=== PATIENT | female | born 1955 | race Caucasian/White ===

== ENCOUNTER 2020-12-06 17:47 | Emergency (ER) | payer MEDICARE, OTHER ==
[~2020-12-06 17:47] MED LIST: PREDNISONE 50 M50 MG PO
[2020-12-06 19:06] LABS: HEMOGLOBIN 8.4 gm/dl (12.3-15.3); RED BLOOD COUNT 3.29 M/UL (4.00-5.10); WHITE BLOOD COUNT 7.3 K/UL (4.5-11.0)
[2020-12-06 19:20] LABS: BUN/CREATININE RATIO 17 (0-10)
== END 2020-12-06 23:55 | disposition short-term general hospital (02) ==
LOC: ER1 17:47
PROVIDERS: Physician Assistant Medical
DX: K92.2 Gastrointestinal hemorrhage, unspecified (principal); I50.9 Heart failure, unspecified; F17.210 Nicotine dependence, cigarettes, uncomplicated; Z79.82 Long term (current) use of aspirin; Z79.01 Long term (current) use of anticoagulants
CPT/HCPCS: 71045; 80053; 81001; 82270; 82550; 82553; 83605; 83874; 84484; 85025; 85610; 86850; 86900; 86901; 87635; 93005; 96374; 99285; C9113; Q9967

== ENCOUNTER 2021-01-01 17:16 | Inpatient (IN) | payer MEDICARE, OTHER ==
[~2021-01-01] VITALS: Ht 170.2 cm; Wt 86.5 kg
[2021-01-01 19:30] LABS: WHITE BLOOD COUNT 6.7 K/UL (4.5-11.0)
[2021-01-01 19:56] LABS: BUN/CREATININE RATIO 15 (0-10)
[2021-01-01 20:05] LABS: HEMOGLOBIN 5.6 gm/dl (12.3-15.3)
[2021-01-01 20:06] LABS: RED BLOOD COUNT 2.48 M/UL (4.00-5.10)
[2021-01-01] MEDS ORDERED: CELEXA 20MG TAB20 MG PO (21:18)
[2021-01-01] MEDS ORDERED: ATORVASTATIN CA40 MG PO (21:18)
[2021-01-01] MEDS ORDERED: LOPRESSOR 25 MG25 MG PO (21:19)
[2021-01-01] MEDS ORDERED: KLONOPIN TAB 00.5 MG PO (21:19)
[2021-01-01] MEDS ORDERED: MONTELUKAST SOD10 MG PO (21:19)
[2021-01-01] MEDS ORDERED: FUROSEMIDE20 MG PO (21:19)
[2021-01-01] MEDS ORDERED: GABAPENTIN600 MG PO (21:20)
[2021-01-01] MEDS ORDERED: FLONASE 0.05% N16 GM (21:20)
[2021-01-01] MEDS ORDERED: HYDROCODON-ACE1 EAC4 PO (21:21)
[2021-01-01] MEDS ORDERED: OMEPRAZOLE20 MG PO (21:21)
[2021-01-01] MEDS ORDERED: ELIQUIS5 MG PO (21:22)
[2021-01-01] MEDS ORDERED: PLETAL 100 MG100 MG PO (21:22)
[2021-01-01] MEDS ORDERED: TRELEGY ELLIPT1 EACH INH (21:24)
[2021-01-01] MEDS ORDERED: ASPIRIN EC81 MG PO (21:25)
[2021-01-01] MEDS ORDERED: CETIRIZINE HCL10 MG PO (21:25)
[2021-01-01] MEDS ORDERED: MULTIVITAMINS1 EAC2 PO (21:26)
[2021-01-01] MEDS ORDERED: FERROUS SULFAT325 MG PO (21:26)
[2021-01-01] MEDS ORDERED: ALBUTEROL2.5 MG/3 M INH (21:27)
[2021-01-01] MEDS ORDERED: DALIRESP 500500 MCG PO (21:28)
[2021-01-01] MEDS ORDERED: POTASSIUM CHLO20 ME2 PO (21:29)
[2021-01-02 08:01] LABS: RED BLOOD COUNT 2.59 M/UL (4.00-5.10); WHITE BLOOD COUNT 5.6 K/UL (4.5-11.0)
[2021-01-02 08:04] LABS: HEMOGLOBIN 6.3 gm/dl (12.3-15.3)
[2021-01-02 08:28] LABS: BUN/CREATININE RATIO 15 (0-10)
[2021-01-02 15:45] LABS: HEMOGLOBIN 7.9 gm/dl (12.3-15.3)
[2021-01-02 20:09] LABS: HEMOGLOBIN 7.8 gm/dl (12.3-15.3)
[2021-01-04 02:57] LABS: HEMOGLOBIN 8.1 gm/dl (12.3-15.3); WHITE BLOOD COUNT 4.9 K/UL (4.5-11.0)
[2021-01-04 02:59] LABS: RED BLOOD COUNT 3.29 M/UL (4.00-5.10)
[2021-01-04 03:26] LABS: BUN/CREATININE RATIO 12 (0-10)
[2021-01-05] MEDS ORDERED: PROTONIX40 MG PO (11:36)
== END 2021-01-05 13:24 | disposition home or self-care (01) | DRG 378 ==
LOC: ER1 17:16 → PROG CARE 20:43 → CDU 20:43 → PROG CARE 23:00 → MED SURG 4 01-05 05:13
PROVIDERS: Internal Medicine; Physician Assistant; ADMIT Internal Medicine
PROC: 30233N1 Transfusion of Nonautologous Red Blood Cells into Peripheral Vein, Percutaneous Approach (ICD-10-PCS; principal; 2021-01-01)
PROC: B24BZZ4 Ultrasonography of Heart with Aorta, Transesophageal (ICD-10-PCS; 2021-01-02)
PROC: 0DB78ZX Excision of Stomach, Pylorus, Via Natural or Artificial Opening Endoscopic, Diagnostic (ICD-10-PCS; 2021-01-04)
PROC: 0DBH8ZX Excision of Cecum, Via Natural or Artificial Opening Endoscopic, Diagnostic (ICD-10-PCS; 2021-01-04)
PROC: 0DBL8ZZ Excision of Transverse Colon, Via Natural or Artificial Opening Endoscopic (ICD-10-PCS; 2021-01-04)
DX: K57.31 Diverticulosis of large intestine without perforation or abscess with bleeding (principal); D62 Acute posthemorrhagic anemia; I50.32 Chronic diastolic (congestive) heart failure; J96.11 Chronic respiratory failure with hypoxia; E66.2 Morbid (severe) obesity with alveolar hypoventilation; I48.91 Unspecified atrial fibrillation; Z20.822 Contact with and (suspected) exposure to COVID-19; F17.210 Nicotine dependence, cigarettes, uncomplicated; J43.9 Emphysema, unspecified; E87.6 Hypokalemia; K59.00 Constipation, unspecified; K29.70 Gastritis, unspecified, without bleeding; I25.10 Atherosclerotic heart disease of native coronary artery without angina pectoris; E78.5 Hyperlipidemia, unspecified; E86.1 Hypovolemia; E11.40 Type 2 diabetes mellitus with diabetic neuropathy, unspecified; I95.9 Hypotension, unspecified; I48.0 Paroxysmal atrial fibrillation; K63.5 Polyp of colon; E11.51 Type 2 diabetes mellitus with diabetic peripheral angiopathy without gangrene; Z79.4 Long term (current) use of insulin; Z79.01 Long term (current) use of anticoagulants; Z90.710 Acquired absence of both cervix and uterus; K64.0 First degree hemorrhoids
CPT/HCPCS: ECHO; 36415; 36430; 70450; 71045; 80048; 80053; 80307; 81001; 82140; 82272; 82550; 82553; 82607; 82746; 82962; 83036; 83874; 83880; 84439; 84443; 84484; 84550; 85014; 85018; 85025; 85610; 86850; 86900; 86901; 86920; 87086; 93005; 93306; 94760; 96374; 99285; C9113; J1940; J2250; J2405; J3010; J7040; J7050; P9016; U0002

== ENCOUNTER → 2021-04-26 | Outpatient (CLI) | payer MEDICARE, OTHER ==
[~2021-04-26] MED LIST changes: +ALBUTEROL2.5 MG/3 M INH; +ASPIRIN EC81 MG PO; +ATORVASTATIN CA40 MG PO; +CELEXA 20MG TAB20 MG PO; +CETIRIZINE HCL10 MG PO; +DALIRESP 500500 MCG PO; +ELIQUIS5 MG PO; +FERROUS SULFAT325 MG PO; +FLONASE 0.05% N16 GM; +FUROSEMIDE20 MG PO; +GABAPENTIN600 MG PO; +HYDROCODON-ACE1 EAC4 PO; +KLONOPIN TAB 00.5 MG PO; +LOPRESSOR 25 MG25 MG PO; +MONTELUKAST SOD10 MG PO; +MULTIVITAMINS1 EAC2 PO; +OMEPRAZOLE20 MG PO; +PLETAL 100 MG100 MG PO; +POTASSIUM CHLO20 ME2 PO; +PROTONIX40 MG PO; +TRELEGY ELLIPT1 EACH INH
== END ==
LOC: KOH-I 12:57
DX: J43.9 Emphysema, unspecified (principal); I70.90 Unspecified atherosclerosis
CPT/HCPCS: 71250

== ENCOUNTER → 2021-10-13 | Outpatient (CLI) | payer MEDICARE, OTHER ==
[~2021-10-13] MED LIST changes: +HYDROCODON-ACE1 EAC1 PO; +LOSARTAN POTASS50 MG PO; +PEPCID40 MG PO
[2021-10-13 11:04] LABS: HEMOGLOBIN 11.1 gm/dl (12.3-15.3); RED BLOOD COUNT 4.28 M/UL (4.00-5.10); WHITE BLOOD COUNT 6.4 K/UL (4.5-11.0)
[2021-10-13 11:26] LABS: BUN/CREATININE RATIO 13 (0-10)
== END ==
LOC: OPSV2 10:00
PROVIDERS: Anesthesiology; Obstetrics & Gynecology
DX: Z01.818 Encounter for other preprocedural examination (principal); N83.201 Unspecified ovarian cyst, right side; I10 Essential (primary) hypertension; J84.10 Pulmonary fibrosis, unspecified
CPT/HCPCS: 36415; 71046; 80048; 85025; 93005

== ENCOUNTER → 2021-10-19 | Day surgery (SDC) | payer MEDICARE, OTHER ==
[~2021-10-19] MED LIST changes: +HYDROCODONE-AC1 EACH PO; +IBUPROFEN600 MG PO
== END | disposition home or self-care (01) ==
LOC: OR 05:20
DX: N83.9 Noninflammatory disorder of ovary, fallopian tube and broad ligament, unspecified (principal); R19.09 Other intra-abdominal and pelvic swelling, mass and lump; I25.10 Atherosclerotic heart disease of native coronary artery without angina pectoris; I11.0 Hypertensive heart disease with heart failure; I50.9 Heart failure, unspecified; I48.91 Unspecified atrial fibrillation; J44.9 Chronic obstructive pulmonary disease, unspecified; G47.30 Sleep apnea, unspecified; K21.9 Gastro-esophageal reflux disease without esophagitis; M19.09 Primary osteoarthritis, other specified site; F32.A Depression, unspecified; D64.9 Anemia, unspecified; E11.9 Type 2 diabetes mellitus without complications; Z99.89 Dependence on other enabling machines and devices; Z79.82 Long term (current) use of aspirin; Z79.899 Other long term (current) drug therapy; Z90.49 Acquired absence of other specified parts of digestive tract; Z90.710 Acquired absence of both cervix and uterus; Z80.1 Family history of malignant neoplasm of trachea, bronchus and lung
CPT/HCPCS: 82962; C1769; J1100; J1885; J2001; J2370; J2405; J2704; J3010; J7030; J7120